=== PATIENT | female | born 1955 | race Caucasian/White ===

== ENCOUNTER 2018-11-04 06:16 | Day surgery (SDC) | payer MEDICAID, OTHER ==
[2018-11-04] MEDS ORDERED: Lactated Ringers 1,000 ML IV SCH (07:00)
[2018-11-04] MEDS ORDERED: fentaNYL 100 MCG/2 ML SDV ONE (07:23)
[2018-11-04] MEDS ORDERED: Midazolam 1 MG/ML 2 ML SDV ONE (07:23)
[2018-11-04] MEDS ORDERED: Propofol 200 MG/20 ML SDV ONE (07:25)
--- NOTE | 2018-11-07 08:00 | OR ---
DATE OF PROCEDURE: 11/04/2018 PREOPERATIVE DIAGNOSIS: Strong family history of colon cancer, father had colon cancer. POSTOPERATIVE DIAGNOSES: Unremarkable colonoscopy, strong family history of colon cancer, father had colon cancer. PROCEDURE: Colonoscopy to the cecum. SURGEON: Rigoberto Alford MD ANESTHESIA: IV anesthesia with monitored anesthesia care. INDICATION: This 62-year-old white female is referred for a colonoscopy because of a strong family history of colon cancer. Her father had colon cancer. She says her last colonoscopic exam was done 5 years ago. I counseled her for the procedure, including risks and alternatives, and she gave her informed consent to proceed. DESCRIPTION OF PROCEDURE: The patient was placed in the left lateral decubitus position. IV anesthesia was administered by the Anesthesia Service. Time-out was held. A rectal exam was performed, which was unremarkable. The flexible video Olympus colonoscope was introduced through her anus, up her rectum, and out her colon all the way to the cecum. Once the cecum was reached, the scope was slowly withdrawn examining the mucosa throughout. No mucosal abnormalities were noted. The scope was retroflexed in the rectum with the distal rectum appearing unremarkable. The scope was straightened and removed. She tolerated the procedure well. Rigoberto Alford MD /[id number]
== END 2018-11-04 09:20 | disposition home or self-care (01) ==
LOC: JP.SDS 06:16
PROVIDERS: ATTEND Surgery
DX: Z12.11 Encounter for screening for malignant neoplasm of colon (principal); I10 Essential (primary) hypertension; K21.9 Gastro-esophageal reflux disease without esophagitis; E66.9 Obesity, unspecified; Z68.36 Body mass index [BMI] 36.0-36.9, adult; Z80.0 Family history of malignant neoplasm of digestive organs
CPT/HCPCS: 45378; J2250; J2704; J3010; J7120